=== PATIENT | female | born 1950 | race Caucasian/White ===

== ENCOUNTER → 2016-02-26 | Outpatient (CLI) | payer MEDICARE, BC ==
--- NOTE | 2016-02-28 09:52 | MM ---
Reason for exam: screening (asymptomatic). Last mammogram was performed 1 year ago. History: Patient is postmenopausal, has history of other cancer at age 62, has history of colon cancer at age 55, and is nulliparous. Benign excisional biopsy of the right breast, 1992. Took hormonal contraceptives for 7 years. Physical Findings: A clinical breast exam by your physician is recommended on an annual basis and results should be correlated with mammographic findings. MG 3D Screening Mammo W/Cad Bilateral CC and MLO view(s) were taken. Prior study comparison: February 24, 2015, bilateral MG 3d screening mammo w/cad. February 07, 2014, bilateral MG screening mammo w CAD. The breast tissue is heterogeneously dense. This may lower the sensitivity of mammography. There is no discrete abnormality. No significant changes when compared with prior studies. ASSESSMENT: Negative, BI-RAD 1 RECOMMENDATION: Routine screening mammogram of both breasts in 1 year.
== END | disposition home or self-care (01) ==
LOC: RADMAMWWP 13:53
PROVIDERS: ATTEND Obstetrics & Gynecology
DX: Z12.31 Encounter for screening mammogram for malignant neoplasm of breast (principal)
CPT/HCPCS: 77063; G0202

== ENCOUNTER → 2016-10-24 | Outpatient (CLI) | payer MEDICARE, BC ==
--- NOTE | 2016-10-25 09:16 | US ---
EXAMINATION TYPE: US thyroid st tissue head/neck DATE OF EXAM: 10/24/2016 COMPARISON: NONE CLINICAL HISTORY: E04.2 Multinodule Nodule. Follow up thyroid nodules GLAND SIZE: Right Lobe: 5.6 x 2.1 x 2.4 cm Overall Parenchyma: heterogenous Left Lobe: 5.4 x 1.1 x 1.6cm cm Overall Parenchyma: heterogeneous Isthmus Thickness: 0.3 cm NODULES RIGHT: # of nodules measured on right: 3 1. 1.9 X 0.8 x 1.7 cm mixed nodule at the upper pole with well-defined margins; . This nodule is w ider than tall and shows intranodular vascularity. Prior size: no prior exam here 2. 0.8 X 0.6 x 0.8 cm cystic nodule at the mid pole with well-defined margins; . This nodule is wid er than tall and shows no intranodular vascularity. Prior size: no prior exam here 3. 1.0 X 0.7 x 0.9 cm isoechoic solid nodule at the lower pole with poorly defined margins; . This nodule is wider than tall and shows intranodular vascularity. Prior size: no prior exam here LEFT: # of nodules measured on left: 1 1. 0.7 X 0.5 x 0.6 cm mixed nodule at the lower pole with well-defined margins; . This nodule is w ider than tall and shows no intranodular vascularity. Prior size: no prior exam here ISTHMUS: # of nodules measured in the isthmus: 0 Bilateral neck scanned, lymph node left neck = 0.6cm Multiple mixed nodules noted bilaterally, only largest measured on the left and largest 3 measured on the right. Hypoechoic area inferior (adjacent to lower pole) right lobe of thyroid = 2.0 x 1.0 x 1. 5cm IMPRESSION: 1. Multinodular goiter. 2 nodules measuring greater than 1 cm on the left lobe thyroid. 2. Hypoechoic area inferior to the right lobe thyroid. 3. Monitoring ultrasound is recommended
== END | disposition home or self-care (01) ==
LOC: RADUSWWP 15:24
PROVIDERS: ATTEND Family Medicine
DX: E04.2 Nontoxic multinodular goiter (principal); R93.8 Abnormal findings on diagnostic imaging of other specified body structures
CPT/HCPCS: 76536

== ENCOUNTER 2016-11-18 11:59 | Day surgery (SDC) | payer MEDICARE, BC ==
--- NOTE | 2016-11-18 14:01 | US ---
ULTRASOUND GUIDED FNA THYROID BIOPSY: CLINICAL HISTORY: 1.9 cm and 1 cm right thyroid nodule FINDINGS: The procedure was explained to the patient. The risks, complications, benefits and alternatives were discussed and any questions were answered. Informed consent was obtained. Patient was placed supin e on the ultrasound table and prepped and draped in the usual sterile fashion. Utilizing a 25 gauge needle, five passes were made into the 1.9 cm and 1 cm right thyroid nodule. Patient was stable throughout the procedure. Pathology is pending. All elements of maximal barrier technique were utilized. IMPRESSION: 1. Successful ultrasound guided FNA thyroid biopsy.
[2016-11-18 15:26] VITALS: BP 119/59; PULSE 82; RESP 20; TEMP 97.9
== END 2016-11-18 13:55 | disposition home or self-care (01) ==
LOC: RADUSMAIN 11:59 → EDSTATUS 14:21
PROVIDERS: ATTEND Family Medicine
DX: E04.2 Nontoxic multinodular goiter (principal)
CPT/HCPCS: 10022; 76942; 88173; 88305

== ENCOUNTER → 2017-02-27 | Outpatient (CLI) | payer MEDICARE, BC ==
--- NOTE | 2017-02-28 11:04 | MM ---
Reason for exam: screening (asymptomatic). Last mammogram was performed 1 year ago. History: Patient is postmenopausal, has history of other cancer at age 62, has history of colon cancer at age 55, and is nulliparous. Benign excisional biopsy of the right breast, 1992. Took hormonal contraceptives for 7 years. Physical Findings: A clinical breast exam by your physician is recommended on an annual basis and results should be correlated with mammographic findings. MG 3D Screening Mammo W/Cad Bilateral CC and MLO view(s) were taken. Prior study comparison: February 26, 2016, bilateral MG 3d screening mammo w/cad. February 24, 2015, bilateral MG 3d screening mammo w/cad. February 07, 2014, bilateral MG screening mammo w CAD. The breast tissue is heterogeneously dense. This may lower the sensitivity of mammography. No significant changes when compared with prior studies. ASSESSMENT: Benign, BI-RAD 2 RECOMMENDATION: Routine screening mammogram of both breasts in 1 year.
== END | disposition home or self-care (01) ==
LOC: RADMAMWWP 13:02
PROVIDERS: ATTEND Obstetrics & Gynecology
DX: Z12.31 Encounter for screening mammogram for malignant neoplasm of breast (principal)
CPT/HCPCS: 77063; 77067

== ENCOUNTER → 2017-04-03 | Outpatient (CLI) | payer MEDICARE, BC ==
--- NOTE | 2017-04-04 07:17 | US ---
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 Follow up nodules. Hx of bx= normal. No thyroid medication . GLAND SIZE: Right Lobe: 4.1 x 1.7 x 1.1 cm Overall Parenchyma: heterogenous Left Lobe: 4.5 x 1.6 x 1.0 cm Overall Parenchyma: heterogeneous Isthmus Thickness: 0.2 cm NODULES RIGHT: # of nodules measured on right: 3 1. 1.6 X 1.0 x 1.0 cm hypoechoic mixed nodule at the upper pole with well-defined margins. This no dule is taller than wide and shows intranodular vascularity. Prior size: 1.9 x 0.8 x 1.7 cm 2. 0.9 X 0.9 x 0.6 cm cystic nodule at the mid pole with well-defined margins. This nodule is wider than tall and shows no intranodular vascularity. Prior size: 0.8 x 0.6 x 0.8 cm 3. 0.8 X 0.9 x 0.6 cm isoechoic solid nodule at the lower pole with poorly defined margins. This no dule is wider than tall and shows intranodular vascularity. Prior size: 1.0 x 0.7 x 0.9 cm LEFT: # of nodules measured on left: 1 Largest nodule measured. 1. 0.7 X 0.5 x 0.4 cm hypoechoic solid nodule at the lower pole with well-defined margins. This no dule is taller than wide and shows no intranodular vascularity. Prior size: 0.7 x 0.5 x 0.6 cm ISTHMUS: # of nodules measured in the isthmus: 0 Bilateral neck scanned, no evidence of lymphadenopathy. Lesion seen inferior to right lobe, appears isoechoic to thyroid gland = 2.1 x 1.4 x 1.4 cm. Prior m easurement = 2.0 x 1.0 x 1.5 cm IMPRESSION: 1. Similar size of multiple prior bilateral nodules in the setting of the multinodular thyroid goiter with 2 prior fine-needle aspirations on 11/18/2016. 2. Minimal increased growth of the isoechoic lesion inferior to the right thyroid lobe. This could re present a mildly enlarged lymph node or exophytic nodule. Continued surveillance is recommended.
== END | disposition home or self-care (01) ==
LOC: RADUSWWP 15:44
PROVIDERS: ATTEND Family Medicine
DX: E04.2 Nontoxic multinodular goiter (principal); E07.89 Other specified disorders of thyroid
CPT/HCPCS: 76536

== ENCOUNTER → 2017-11-10 | Outpatient (CLI) | payer MEDICARE, BC ==
--- NOTE | 2017-11-11 07:47 | USB ---
Reason for exam: clinical finding. History: Patient is postmenopausal, has history of other cancer at age 62, has history of colon cancer at age 55, and is nulliparous. Benign excisional biopsy of the right breast, 1992. Took hormonal contraceptives for 7 years. Indicated problem(s): pain in the left breast. Physical Findings: Nurse Summary: bilateral breast tenderness on exam, more prominent tissue left upper quadrant, all soft, movable (nurse ts). US Breast LT Left complete breast ultrasound includes all four quadrants, the retroareolar region and axilla. Finding demonstrates a 4 x 3 x 4mm oval, cystic lesion at 1 o'clock and lymph nodes at axilla tail. These results were verbally communicated with the patient and result sheet given to the patient on 11/10/17. ASSESSMENT: Benign, BI-RAD 2 RECOMMENDATION: Return to routine screening mammogram schedule for both breasts. Back on schedule for February 2018. Manage patient on a clinical basis.
== END | disposition home or self-care (01) ==
LOC: RADUSWWP 14:21
PROVIDERS: ATTEND Family Medicine
DX: N64.4 Mastodynia (principal)

== ENCOUNTER → 2017-12-09 | Outpatient (CLI) | payer MEDICARE, BC ==
--- NOTE | 2017-12-09 16:02 | XR ---
EXAMINATION TYPE: XR knee complete RT DATE OF EXAM: 12/09/2017 CLINICAL HISTORY: Knee pain and swelling for 2 weeks after strain injury. TECHNIQUE: Three views of the right knee are obtained. COMPARISON: None. FINDINGS: There is no acute fracture/dislocation evident in right knee. There is early phase osseous demineralization. There is small patellofemoral osteophytes are seen as well as minimal medial comp artment joint space narrowing. The tri-compartment joint spaces appear within normal limits. Fabella is incidentally noted. The overlying soft tissue appears unremarkable. IMPRESSION: There is no acute fracture or dislocation in the right knee. Very mild bicompartmental a rthropathy.
== END ==
LOC: RADXRYALE 14:59
PROVIDERS: ATTEND Family Medicine
DX: M17.11 Unilateral primary osteoarthritis, right knee (principal)

== ENCOUNTER → 2018-03-16 | Outpatient (CLI) | payer MEDICARE, BC ==
--- NOTE | 2018-03-16 13:05 | BD ---
EXAMINATION TYPE: Axial Bone Density DATE OF EXAM: 03/16/2018 Comparison: Prior DEXA report 2007. CLINICAL HISTORY: Postmenopausal female Height: 63.5 Weight: 130 FRAX RISK QUESTIONS: Alcohol (3 or more units per day): no Family History (Parent hip fracture): does not know Glucocorticoids (More than 3mos): no (Ex: prednisone, prednisolone, methylprednisolone, dexamethasone, and hydrocortisone). History of Fracture in Adulthood: no Secondary Osteoporosis: 1. Type 1 Diabetes: no 2. Hyperthyroidism: no 3. Menopause before 45: no 4. Malnutrition: no 5. Chronic liver disease: no Rheumatoid Arthritis: no Current Tobacco Use: no RISK FACTORS HISTORY OF: Family History of Osteoporosis: does not know Active: yes Diet low in dairy products/other sources of calcium: no Postmenopausal woman: yes Take estrogen and/or progesterone medications: not now How long: hormonal contraceptives about 7 years Lost more than 2 inches in height since high school: no Frequent falls: no Poor Health: no Hyperparathyroidism: no Adrenal Insufficiency: no MEDICATIONS: Thyroid Medications: no Osteoporosis Medications: not now Which medication: Fosamax How Long: about 7 months Additional Medications: med for migraines Additional History: recent biopsy of thyroid nodule EXAM MEASUREMENTS: Bone mineral densitometry was performed using the [employer] System. Bone mineral density as measured about the Lumbar spine is: ----- L1-L4(G/cm2): 0.927 T Score Values are as follows: ----- L2: -1.7 ----- L3: -2.4 ----- L4: -2.5 ----- L1-L4: -2.1 Bone mineral density has: Decreased -16.3 % since study of: 06/11/2007 Bone mineral density about the R hip (g/cm2): 0.607 Bone mineral density about the L hip (g/cm2): 0.640 T Score values are as follows: -----R Neck: -3.1 -----L Neck: -2.9 -----R Total: -3.0 -----L Total: -2.5 Bone mineral density has: Decreased -19.7% since study of: 06/11/2007 IMPRESSION: Osteoporosis (T Score less than -2.5) femoral neck level in both hips is now present. Bone density di minished from prior report. There is increased fracture risk and therapy is usually indicated based on age. Re-Screen 1-2 years. NOTE: T-SCORE=SD OF THE YOUNG ADULT MEAN.
--- NOTE | 2018-03-17 09:51 | MM ---
Reason for exam: screening (asymptomatic). Last mammogram was performed 1 year and 1 month ago. History: Patient is postmenopausal, has history of other cancer at age 62, has history of colon cancer at age 55, and is nulliparous. Benign excisional biopsy of the right breast, 1992. Took hormonal contraceptives for 7 years. Physical Findings: A clinical breast exam by your physician is recommended on an annual basis and results should be correlated with mammographic findings. MG 3D Screening Mammo W/Cad Bilateral CC and MLO view(s) were taken. Prior study comparison: February 27, 2017, bilateral MG 3d screening mammo w/cad. February 26, 2016, bilateral MG 3d screening mammo w/cad. The breast tissue is heterogeneously dense. This may lower the sensitivity of mammography. There is no discrete abnormality. No significant changes when compared with prior studies. ASSESSMENT: Negative, BI-RAD 1 RECOMMENDATION: Routine screening mammogram of both breasts in 1 year.
== END | disposition home or self-care (01) ==
LOC: RADMAMWWP 09:10
PROVIDERS: ATTEND Obstetrics & Gynecology
DX: Z12.31 Encounter for screening mammogram for malignant neoplasm of breast (principal); M81.0 Age-related osteoporosis without current pathological fracture
CPT/HCPCS: 77063; 77067; 77080

== ENCOUNTER → 2019-03-18 | Outpatient (CLI) | payer MEDICARE, BC ==
--- NOTE | 2019-03-19 16:55 | MM ---
Reason for exam: screening (asymptomatic). Last mammogram was performed 1 year ago. History: Patient is postmenopausal, has history of other cancer at age 62, has history of colon cancer at age 55, and is nulliparous. Benign excisional biopsy of the right breast, 1992. Took hormonal contraceptives for 7 years. Physical Findings: A clinical breast exam by your physician is recommended on an annual basis and results should be correlated with mammographic findings. MG 3D Screening Mammo W/Cad Bilateral CC and MLO view(s) were taken. Prior study comparison: March 16, 2018, bilateral MG 3d screening mammo w/cad. February 27, 2017, bilateral MG 3d screening mammo w/cad. The breast tissue is heterogeneously dense. This may lower the sensitivity of mammography. Finding: There is a stable typically benign equal density (isodense), round mass in the 12 o'clock anterior position of the left breast. No significant changes in finding since March 16, 2018 and February 27, 2017. ASSESSMENT: Benign, BI-RAD 2 RECOMMENDATION: Routine screening mammogram of both breasts in 1 year.
== END | disposition home or self-care (01) ==
LOC: RADMAMWWP 13:10
PROVIDERS: ATTEND Obstetrics & Gynecology
DX: Z12.31 Encounter for screening mammogram for malignant neoplasm of breast (principal)
CPT/HCPCS: 77063; 77067

== ENCOUNTER → 2019-03-22 | Outpatient (CLI) | payer MEDICARE, BC ==
--- NOTE | 2019-03-23 08:31 | US ---
EXAMINATION TYPE: US pelvic complete DATE OF EXAM: 03/22/2019 COMPARISON: NONE CLINICAL HISTORY: R10.2 Pelvic Pain. Occasional pelvic pain and pain during exam by doctor. G0. LMP u nknown. TECHNIQUE: Transabdominal (TA). Transvaginal exam not to be done per order. Date of LMP: Unknown. EXAM MEASUREMENTS: Uterus: 7.0 x 4.5 x 2.5 cm Endometrial Stripe: Not clearly seen. Right Ovary: Not visualized at this time. Left Ovary: Not visualized at this time. 1. Uterus: Anteverted. Appears to be heterogeneous. Multiple hyperechoic areas seen throughout the u terus. Largest measures: 1.3 x 0.7 x 0.5 cm. 2. Endometrium: Limited visibility. 3. Bilateral Adnexa: Appear to be wnl. Bowel peristalsis is seen throughout. 4. Posterior cul-de-sac: Appears to be wnl. IMPRESSION: 1. Probable calcified leiomyomas.
== END | disposition home or self-care (01) ==
LOC: RADUSWWP 16:21
PROVIDERS: ATTEND Obstetrics & Gynecology
DX: R10.2 Pelvic and perineal pain (principal)
CPT/HCPCS: 76856

== ENCOUNTER → 2019-12-30 | Outpatient (CLI) | payer MEDICARE, BC ==
--- NOTE | 2019-12-30 09:05 | MM ---
Reason for exam: additional evaluation requested from prior study. Last mammogram was performed 9 months ago. History: Patient is postmenopausal, has history of other cancer at age 62, has history of colon cancer at age 55, and is nulliparous. Benign excisional biopsy of the right breast, 1992. Took hormonal contraceptives for 7 years. Physical Findings: Nurse did not find any significant physical abnormalities on exam. MG 3D Diag Mammo W/Cad LT CC and MLO view(s) were taken of the left breast. Prior study comparison: March 18, 2019, bilateral MG 3d screening mammo w/cad. March 16, 2018, bilateral MG 3d screening mammo w/cad. The breast tissue is heterogeneously dense. This may lower the sensitivity of mammography. No significant new findings when compared with previous films. These results were verbally communicated with the patient and result sheet given to the patient on 12/30/19. ASSESSMENT: Benign, BI-RAD 2 RECOMMENDATION: Return to routine screening mammogram schedule for both breasts.
== END | disposition home or self-care (01) ==
LOC: RADMAMWWP 07:23
PROVIDERS: ATTEND Obstetrics & Gynecology
DX: N64.4 Mastodynia (principal)
CPT/HCPCS: 77065; G0279; 77061

== ENCOUNTER → 2020-02-18 | Outpatient (CLI) | payer MEDICARE, BC ==
[2020-02-18 13:37] VITALS: BP 147/90; PULSE 84; RESP 18; TEMP 98
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
== END | disposition home or self-care (01) ==
LOC: WWCWWP 12:49
PROVIDERS: ATTEND Surgery
DX: Z53.9 Procedure and treatment not carried out, unspecified reason (principal)

== ENCOUNTER → 2020-04-27 | Outpatient (CLI) | payer MEDICARE, BC ==
--- NOTE | 2020-05-01 11:45 | MM ---
Reason for exam: screening (asymptomatic). Last mammogram was performed 4 months ago. History: Patient is postmenopausal, has history of other cancer at age 62, has history of colon cancer at age 55, and is nulliparous. Benign excisional biopsy of the right breast, 1992. Took hormonal contraceptives for 7 years. Physical Findings: A clinical breast exam by your physician is recommended on an annual basis and results should be correlated with mammographic findings. MG 3D Screening Mammo W/Cad Bilateral CC and MLO view(s) were taken. Prior study comparison: December 30, 2019, left breast MG 3d diag mammo w/cad LT. March 18, 2019, bilateral MG 3d screening mammo w/cad. The breast tissue is heterogeneously dense. This may lower the sensitivity of mammography. There is chronic nodularity in the left breast. There is no discrete abnormality. ASSESSMENT: Negative, BI-RAD 1 RECOMMENDATION: Routine screening mammogram of both breasts in 1 year.
== END | disposition home or self-care (01) ==
LOC: RADMAMWWP 14:58
PROVIDERS: ATTEND Obstetrics & Gynecology
DX: Z12.31 Encounter for screening mammogram for malignant neoplasm of breast (principal)
CPT/HCPCS: 77063; 77067

== ENCOUNTER → 2020-05-26 | Outpatient (CLI) | payer MEDICARE, BC ==
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
[2020-05-26 11:30] VITALS: BP 135/76; PULSE 81; RESP 18; TEMP 98.3
== END ==
LOC: WWCWWP 11:03
PROVIDERS: ATTEND Surgery
DX: N60.11 Diffuse cystic mastopathy of right breast (principal); N60.12 Diffuse cystic mastopathy of left breast; Z87.891 Personal history of nicotine dependence; F41.9 Anxiety disorder, unspecified

== ENCOUNTER → 2021-04-30 | Outpatient (CLI) | payer MEDICARE, BC ==
--- NOTE | 2021-05-02 09:18 | MM ---
Reason for exam: screening (asymptomatic). Last mammogram was performed 1 year ago. History: Patient is postmenopausal, has history of other cancer at age 62, has history of colon cancer at age 55, and is nulliparous. Benign excisional biopsy of the right breast, 1992. Took hormonal contraceptives for 7 years. Physical Findings: A clinical breast exam by your physician is recommended on an annual basis and results should be correlated with mammographic findings. MG 3D Screening Mammo W/Cad Bilateral CC and MLO view(s) were taken. Prior study comparison: April 27, 2020, bilateral MG 3d screening mammo w/cad. December 30, 2019, left breast MG 3d diag mammo w/cad LT. The breast tissue is heterogeneously dense. This may lower the sensitivity of mammography. No significant changes when compared with prior studies. ASSESSMENT: Benign, BI-RAD 2 RECOMMENDATION: Routine screening mammogram of both breasts in 1 year.
== END | disposition home or self-care (01) ==
LOC: RADMAMWWP 09:40
PROVIDERS: ATTEND Surgery
DX: Z12.31 Encounter for screening mammogram for malignant neoplasm of breast (principal); Z78.0 Asymptomatic menopausal state
CPT/HCPCS: 77063; 77067

== ENCOUNTER → 2021-06-21 | Outpatient (CLI) | payer MEDICARE, BC ==
[2021-06-21 09:10] VITALS: BP 154/80; PULSE 83; RESP 17; TEMP 97.9
--- NOTE | 2021-06-21 09:32 | P.PCN ---
Date of Procedure: 06/21/21 Preoperative Diagnosis: Nodularity 3 O'clock position periareolar region left breast Postoperative Diagnosis: Same Procedure(s) Performed: FNA area of concern left breast Surgeon: Ashleigh Nugent Pathology: other (FNA tissue) Condition: stable Disposition: same day Indications for Procedure: Nodularity of concern 3:00 periareolar region left breast Operative Findings: Fibrofatty breast tissue Description of Procedure: The area of concern was prepped using alcohol. A 10 mL syringe with a 22-gauge needle was passed into the area of concern. Using suction on the syringe samples were obtained. The patient tolerated procedure in stable condition. She will follow up next week for results. The specimen is sent to pathology.
== END ==
LOC: WWCWWP 08:51
PROVIDERS: ATTEND Surgery
DX: N63.25 Unspecified lump in the left breast, overlapping quadrants (principal); Z88.0 Allergy status to penicillin

== ENCOUNTER → 2021-09-17 | Outpatient (CLI) | payer MEDICARE, BC ==
--- NOTE | 2021-09-17 12:06 | US ---
EXAMINATION TYPE: US carotid duplex BILAT DATE OF EXAM: 09/17/2021 COMPARISON: NONE CLINICAL HISTORY: R42 DIZZINESS, H93.A3 PULSATILE TINNITUS. Dizziness and giddiness pulsatile tinnitu s. Prior smoker. TECHNIQUE: Carotid duplex ultrasound examination. Indirect Doppler criteria was utilized. FINDINGS: EXAM MEASUREMENTS: RIGHT: Peak Systolic Velocity (PSV) cm/sec ----- Right CCA: 120.0 ----- Right ICA: 110.2 ----- Right ECA: 46.9 ICA/CCA ratio: 0.9 RIGHT: End Diastole cm/sec ----- Right CCA: 35.7 ----- Right ICA: 34.4 ----- Right ECA: 0.0 LEFT: Peak Systolic Velocity (PSV) cm/sec ----- Left CCA: 104.0 ----- Left ICA: 96.3 ----- Left ECA: 98.5 ICA/CCA ratio: 0.9 LEFT: End Diastole cm/sec ----- Left CCA: 25.9 ----- Left ICA: 20.4 ----- Left ECA: 12.8 VERTEBRALS (direction of flow): Right Vertebral: Antegrade Left Vertebral: Antegrade Rhythm: Normal MECHANICAL SYSTEMS CONTROL ENGINEER NOTES: No elevated velocities at this time. Difficult to follow right ICA distally. IMPRESSION: Mild intimal thickening without significant flow-limiting stenosis. Criteria for Assigning % of Stenosis / Diameter reduction (Estimation based on the indirect measurements of the internal carotid artery velocities (ICA PSV). 1. Normal (no stenosis)=ICA PSV < 125 cm/s: ratio < 2.0: ICA EDV<40 cm/s. 2. Less than 50% stenosis=ICA PSV < 125 cm/s: ratio < 2.0: ICA EDV<40 cm/s. 3. 50 to 69% stenosis=ICA PSV of 125 to 230 cm/s: ration 2.0 ? 4.0: ICA EDV 40-100 cm/s. 4. Greater than 70% stenosis to near occlusion= ICA PSV > 230 cm/s: ratio > 4.0: ICA EDV > 100 cm/s. 5. Near occlusion= ICA PSV velocities may be low or undetectable: variable ratio and ICA EDV. 6. Total occlusion=unable to detect flow.
== END | disposition home or self-care (01) ==
LOC: RADUSWWP 10:50
PROVIDERS: ATTEND Family Medicine
DX: R42 Dizziness and giddiness (principal); H93.A3 Pulsatile tinnitus, bilateral
CPT/HCPCS: 93880

== ENCOUNTER → 2021-10-23 | Outpatient (CLI) | payer MEDICARE, BC ==
--- NOTE | 2021-10-23 15:12 | USB ---
Reason for Exam: Follow-up at short interval from prior study. Patient History: Menarche at age 16. Patient has no children. Postmenopausal. Colorectal cancer, age 55. Other cancer, age 62. Patient used Hormonal Contraceptives for 7 years. 1992, Benign Excisional Biopsy on the right side. Risk Values: Amena 5 year model risk: 2.1%. NCI Lifetime model risk: 5.5%. Technique: Method: Whole Breast Handheld. Prior Study Comparison: 12/30/2019 Left Diagnostic Mammogram, [facility]. 04/27/2020 Bilateral Screening Mammogram, [facility]. 04/30/2021 Bilateral Screening Mammogram, [facility]. Findings: The whole breast of the left breast, the axilla of the left breast and the retroareolar of the left breast were scanned. No solid or cystic masses are identified. Overall Assessment: Negative, BI-RAD 1 Management: Return to routine follow-up (next follow-up: 04/30/2022 for Screening Mammogram) A clinical breast exam by your physician is recommended on an annual basis and results should be correlated with mammographic findings. Electronically signed and approved by: Tj Aquino M.D. Radiologis
== END | disposition home or self-care (01) ==
LOC: RADUSWWP 13:57
PROVIDERS: ATTEND Surgery
DX: R92.8 Other abnormal and inconclusive findings on diagnostic imaging of breast (principal); Z78.0 Asymptomatic menopausal state

== ENCOUNTER → 2021-10-26 | Outpatient (CLI) | payer MEDICARE, BC ==
--- NOTE | 2021-10-26 11:57 | P.PN ---
Subjective Progress Note Date: 10/26/21 Principal diagnosis: fibrocystic breast pain nodularity of the left breast Bilateral mammogram on 04-30-21 Benign BIRAD 2. Her breast pain has improved. She only drinks decaff tea and takes [place] oil. She states it is worse after physical therapy. She does still drink coffee. The patient does feel nodularity in her left breast in the periareolar region the lateral aspect. It is tender. NO other lumps, masses, or nodules of concern in either breast. 10-26-21: left breast ultrasound on 10-23-21 BIRAD 1, no solid or cystic masses noted She is not concerned about any lumps, masses or nodules in her breast Has decreased her caffeine intake, she states recently she did have caffeinated beverages and the breast pain did increase. She has been using [place] oil as well. Breast pain has improved, she has decreased caffeinated beverages, using [place] oil, and stopped using soy products. She has noticed that with exercise she developed shoulder pain and discomfort in her breast as well. Caffeine: 3-5 cups per day of coffee and/or Tea/ (has stopped these about 3 months ago) in the past; she only drinks 2 cups of coffee/day; tea decaff Nicotine: Negative chocolate: occasional hormones: none, soy stopped using soy Family History: adopted unknown Hormonal History: menarche: 16 , no live menopause: ? 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 D&C Medical History: migraine headaches bilateral cataracts Social History: smoke: stopped 15 years ago alcohol: none drugs: none - Constitutional Constitutional: Denies chills, Denies fever - EENT Comment: cataracts bilateral Ears: deny: decreased hearing, tinnitus Ears, nose, mouth and throat: Reports headache, Denies sore throat - Breasts Breasts: bilateral: as per HPI - Cardiovascular Cardiovascular: Denies chest pain, Denies shortness of breath - Respiratory Respiratory: Denies cough - Gastrointestinal Gastrointestinal: Denies abdominal pain, Denies diarrhea, Denies nausea, Denies vomiting - Genitourinary (Female) Genitourinary: Denies dysuria, Denies hematuria - Menstruation Menstruation: Reports postmenopausal - Musculoskeletal Comment: arthritis - Integumentary Comment: eczema - Neurological Neurological: Denies numbness, Denies weakness - Psychiatric Psychiatric: Reports anxiety, Denies depression - Endocrine Endocrine: Denies fatigue, Denies weight change - Hematologic/Lymphatic Comment: Objective - Constitutional General appearance: Present: cooperative - EENT Eyes: Present: EOMI ENT: Present: hearing grossly normal - Neck Neck: Present: normal ROM - Respiratory Respiratory: bilateral: CTA - Cardiovascular Rhythm: regular Heart sounds: normal: S1, S2 - Integumentary Integumentary: Present: normal turgor - Musculoskeletal Musculoskeletal: Present: gait normal - Psychiatric Psychiatric: Present: A&O x's 3, appropriate affect, intact judgment & insight - Additional findings Additional findings: Breast Exam: BRA: 32B inspection: Bilateral grade 2 ptosis Palpation: Right breast: Well-healed scar from prior surgery, no dominant masses or nodules of concern on multiposition all exam Right axilla: No adenopathy of concern Left breast: Multi-positional exam no dominant masses or nodules of concern, fibrocystic changes Left axilla: No adenopathy of concern Assessment and Plan Assessment: Impression/plan: Fibrocystic breast changes Recent left breast ultrasound [id number] benign BIRADS 1 Bilateral mammogram 04-30-21 benign BIRADS 2, recommend repeat bilateral mammogram in April 2022 with physician exam at that time continue [place] oil Continue lifestyle modification with decreased caffeine intake Patient to call sooner any questions or concerns Patient has had a history of melanoma in the past and is following with dermatology in relationship to this CC: Dr. Dietz
[2021-10-26 13:37] VITALS: BP 132/79; PULSE 77; RESP 16; TEMP 98.3
== END ==
LOC: WWCWWP 11:08
PROVIDERS: ATTEND Surgery
DX: N60.12 Diffuse cystic mastopathy of left breast (principal); G43.909 Migraine, unspecified, not intractable, without status migrainosus; Z87.891 Personal history of nicotine dependence; Z88.0 Allergy status to penicillin

== ENCOUNTER → 2022-05-06 | Outpatient (CLI) | payer MEDICARE, BC ==
--- NOTE | 2022-05-10 08:08 | MM ---
Reason for Exam: Additional evaluation requested from prior study. Last screening mammogram was performed 12 month(s) ago. Patient History: Menarche at age 16. Patient has no children. Postmenopausal. Colorectal cancer, age 55. Other cancer, age 62. Patient used Hormonal Contraceptives for 7 years. 1992, Benign Excisional Biopsy on the right side. Risk Values: Amena 5 year model risk: 2.1%. NCI Lifetime model risk: 5.2%. Prior Study Comparison: 02/24/2015 Bilateral Screening Mammogram, [facility]. 02/26/2016 Bilateral Screening Mammogram, [facility]. 02/27/2017 Bilateral Screening Mammogram, [facility]. 03/16/2018 Bilateral Screening Mammogram, [facility]. 03/18/2019 Bilateral Screening Mammogram, [facility]. 12/30/2019 Left Diagnostic Mammogram, [facility]. 04/27/2020 Bilateral Screening Mammogram, [facility]. 04/30/2021 Bilateral Screening Mammogram, [facility]. Tissue Density: The breast tissue is heterogeneously dense. This may lower the sensitivity of mammography. Findings: Analyzed By CAD. No mass or distortion seen. No suspicious appearing microcalcifications. Overall Assessment: Negative, BI-RAD 1 Management: Screening Mammogram of both breasts in 1 year. A clinical breast exam by your physician is recommended on an annual basis and results should be correlated with mammographic findings. This exam should not preclude additional follow-up of suspicious palpable abnormalities. Results were given to the patient verbally at the time of exam. Electronically signed and approved by: Tj Aquino M.D. Radiologis
== END | disposition home or self-care (01) ==
LOC: RADMAMWWP 08:40
PROVIDERS: ATTEND Surgery
DX: R92.8 Other abnormal and inconclusive findings on diagnostic imaging of breast (principal); Z78.0 Asymptomatic menopausal state; Z98.890 Other specified postprocedural states
CPT/HCPCS: 77066; G0279; 77062

== ENCOUNTER → 2022-05-10 | Outpatient (CLI) | payer MEDICARE, BC | LOC: WWCWWP 11:23 | PROVIDERS: ATTEND Surgery | DX: Z53.9 Procedure and treatment not carried out, unspecified reason (principal) ==

== ENCOUNTER → 2022-05-30 | Outpatient (CLI) | payer MEDICARE, BC ==
[2022-05-30 10:05] VITALS: BP 139/75; PULSE 85; RESP 17; TEMP 97.8
--- NOTE | 2022-05-30 10:14 | P.PN ---
Subjective Progress Note Date: 05/30/22 Principal diagnosis: Fibrocystic breast pain fibrocystic breast pain nodularity of the left breast Bilateral mammogram on 04-30-21 Benign BIRAD 2. Her breast pain has improved. She only drinks decaff tea and takes [place] oil. She states it is worse after physical therapy. She does still drink coffee. The patient does feel nodularity in her left breast in the periareolar region the lateral aspect. It is tender. NO other lumps, masses, or nodules of concern in either breast. 10-26-21: left breast ultrasound on 10-23-21 BIRAD 1, no solid or cystic masses noted She is not concerned about any lumps, masses or nodules in her breast Has decreased her caffeine intake, she states recently she did have caffeinated beverages and the breast pain did increase. She has been using [place] oil as well. Breast pain has improved, she has decreased caffeine beverages, using [place] oil, and stopped using soy products. She has noticed that with exercise she developed shoulder pain and discomfort in her breast as well. 05-30-22 The patient has continued to drink decaff, but still has some persistent breast pain. She was seen by orthopedics and told cervical disc disease She states that exercise causes pain in her neck and seems to radiate to the breast. She is not complaining of any new lumps masses or nodules in her breast. She had a bilateral mammogram on [id number] which was benign BIRADS 1. Caffeine: 3-5 cups per day of coffee and/or Tea/ (has stopped these about 3 months ago) in the past; she only drinks 2 cups of coffee/day; tea decaff Nicotine: Negative chocolate: occasional hormones: none, soy stopped using soy Family History: adopted unknown Hormonal History: menarche: 16 , no live menopause: ? 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 D&C Medical History: migraine headaches bilateral cataracts cervical disc disease Social History: smoke: stopped 15 years ago alcohol: none drugs: none - Constitutional Constitutional: Denies chills, Denies fever - EENT Comment: cataracts bilateral Ears: deny: decreased hearing, tinnitus Ears, nose, mouth and throat: Reports headache, Denies sore throat - Breasts Breasts: bilateral: as per HPI - Cardiovascular Cardiovascular: Denies chest pain, Denies shortness of breath - Respiratory Respiratory: Denies cough - Gastrointestinal Gastrointestinal: Denies abdominal pain, Denies diarrhea, Denies nausea, Denies vomiting - Genitourinary (Female) Genitourinary: Denies dysuria, Denies hematuria - Menstruation Menstruation: Reports postmenopausal - Musculoskeletal Comment: arthritis - Integumentary Comment: eczema - Neurological Neurological: Denies numbness, Denies weakness - Psychiatric Psychiatric: Reports anxiety, Denies depression - Endocrine Endocrine: Denies fatigue, Denies weight change - Hematologic/Lymphatic Comment: Objective - Vital Signs Vital signs: Intake & Output 05/29/22 05/30/22 05/30/22 18:59 06:59 18:59 Weight 63.503 kg - Constitutional General appearance: Present: cooperative - EENT Eyes: Present: EOMI ENT: Present: hearing grossly normal - Neck Neck: Present: normal ROM - Respiratory Respiratory: bilateral: CTA - Cardiovascular Rhythm: regular Heart sounds: normal: S1, S2 - Gastrointestinal General gastrointestinal: Present: soft - Integumentary Integumentary: Present: normal turgor - Musculoskeletal Musculoskeletal: Present: gait normal - Psychiatric Psychiatric: Present: A&O x's 3, appropriate affect, intact judgment & insight - Additional findings Additional findings: Breast Exam: BRA: 32B inspection: Bilateral grade 2 ptosis Palpation: Right breast: Well-healed scar from prior surgery, no dominant masses or nodules of concern on multiposition all exam Right axilla: No adenopathy of concern Left breast: Multi-positional exam no dominant masses or nodules of concern, fibrocystic changes Left axilla: No adenopathy of concern Assessment and Plan Assessment: Impression/plan: Fibrocystic breast changes Recent left breast ultrasound [id number] benign BIRADS 1 Bilateral mammogram 05-06-22 BIRADS 1 Continue lifestyle modification with decreased caffeine intake Bilateral mammogram in 1 year with exam Patient to call sooner any questions or concerns Patient has had a history of melanoma in the past and is following with dermatology in relationship to this CC: Dr. Dietz
== END ==
LOC: WWCWWP 09:51
PROVIDERS: ATTEND Surgery
DX: N60.12 Diffuse cystic mastopathy of left breast (principal); N64.4 Mastodynia; G43.909 Migraine, unspecified, not intractable, without status migrainosus; Z87.891 Personal history of nicotine dependence; Z88.0 Allergy status to penicillin

== ENCOUNTER → 2023-05-06 | Outpatient (CLI) | payer MEDICARE, BC ==
--- NOTE | 2023-05-06 16:15 | US ---
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 1.6 X 0.8 x 1.2 cm, upper medial, solid or almost completely solid, isoechoic nodule, which is w ider than tall, with ill-defined margins, without echogenic foci. TR 3 Prior size: 1.0 x 0.7 x 0.9 cm LEFT: # of nodules measured on left: 1; Multiple noted, largest measured 1. 0.9 X 0.5 x 0.8 cm, upper medial, solid or almost completely solid, hypoechoic nodule, which is wider than tall, with smooth margins, without echogenic foci. Prior size: ? Not seen on prior ISTHMUS: # of nodules measured in the isthmus: 1 1. 0.7 X 0.4 x 0.7 cm solid or almost completely solid, very hypoechoic nodule, which is wider than tall, with smooth margins, without echogenic foci. Prior size: ? not seen on prior Bilateral neck scanned, no evidence of lymphadenopathy. IMPRESSION: Mildly suspicious nodule right lobe thyroid. Follow-up in one year is recommended. 2017 ACR TI-RADS LEVEL: TR-RADS 3 - Mildly Suspicious: Follow if > 1.5 cm, FNA if > 2.5 cm *Highest TI-RADS level nodule reported
== END | disposition home or self-care (01) ==
LOC: RADUSWWP 14:39
PROVIDERS: ATTEND Family Medicine
DX: E04.2 Nontoxic multinodular goiter (principal); Z85.820 Personal history of malignant melanoma of skin
CPT/HCPCS: 76536

== ENCOUNTER → 2023-05-08 | Outpatient (CLI) | payer MEDICARE, BC ==
--- NOTE | 2023-05-08 12:33 | MM ---
Reason for Exam: Screening (asymptomatic). Last screening mammogram was performed 12 month(s) ago. Patient History: Menarche at age 16. Patient has no children. Postmenopausal. Patient used Hormonal Contraceptives for 7 years. 1992, Benign Excisional Biopsy on the right side. Risk Values: Amena 5 year model risk: 2.1%. NCI Lifetime model risk: 4.9%. Prior Study Comparison: 04/27/2020 Bilateral Screening Mammogram, [facility]. 04/30/2021 Bilateral Screening Mammogram, [facility]. 05/06/2022 Bilateral MG 3D diag mammo w/cad [facility], [facility]. Tissue Density: There are scattered areas of fibroglandular density. Findings: Analyzed By CAD. The pattern is symmetrical. Pattern appears stable. Benign calcifications within the left breast. No significant interval changes are evident. No suspicious groups of microcalcifications, spiculated or lobular masses, architectural distortion or other secondary signs of malignancy are mammographically apparent. Overall Assessment: Benign, BI-RAD 2 Management: Screening Mammogram of both breasts in 1 year. A negative mammogram report should not preclude additional follow up of suspicious palpable abnormalities. Patient should continue monthly self breast exam. A clinical breast exam by your physician is recommended on an annual basis and results should be correlated with mammographic findings. Electronically signed and approved by: Parish Santiago D.O. Radiologis
== END | disposition home or self-care (01) ==
LOC: RADMAMWWP 09:02
PROVIDERS: ATTEND Surgery
DX: Z12.31 Encounter for screening mammogram for malignant neoplasm of breast (principal); Z78.0 Asymptomatic menopausal state
CPT/HCPCS: 77063; 77067

== ENCOUNTER → 2023-05-15 | Outpatient (CLI) | payer MEDICARE, BC ==
--- NOTE | 2023-05-15 14:34 | USB ---
Reason for Exam: Clinical finding. Patient History: Menarche at age 16. Patient has no children. Postmenopausal. Patient used Hormonal Contraceptives for 7 years. 1992, Benign Excisional Biopsy on the right side. Risk Values: Amena 5 year model risk: 2.1%. NCI Lifetime model risk: 4.9%. Technique: Method: Targeted. Prior Study Comparison: 04/30/2021 Bilateral Screening Mammogram, [facility]. 05/06/2022 Bilateral MG 3D diag mammo w/cad [facility], [facility]. 05/08/2023 Bilateral MG 3D screening mammo w/cad, [facility]. Findings: The lower inner quadrant of the left breast, the axilla of the left breast and the retroareolar of the left breast were scanned. No solid or cystic masses are identified. Managed clinically. Overall Assessment: Negative, BI-RAD 1 Management: Screening Mammogram of both breasts in 1 year. A clinical breast exam by your physician is recommended on an annual basis and results should be correlated with mammographic findings. This exam should not preclude additional follow-up of suspicious palpable abnormalities. Results were given to the patient verbally at the time of exam. Electronically signed and approved by: Tj Aquino M.D. Radiologis
== END | disposition home or self-care (01) ==
LOC: RADUSWWP 14:02
PROVIDERS: ATTEND Surgery
DX: N63.24 Unspecified lump in the left breast, lower inner quadrant (principal); Z78.0 Asymptomatic menopausal state

== ENCOUNTER → 2023-05-15 | Outpatient (CLI) | payer MEDICARE, BC ==
[2023-05-15 13:41] VITALS: BP 160/84; PULSE 73; RESP 15; TEMP 98.1
--- NOTE | 2023-05-15 13:59 | P.PN ---
Subjective Progress Note Date: 05/15/23 Principal diagnosis: fibrocystic breast disease 05/30/22 Principal diagnosis: Fibrocystic breast pain fibrocystic breast pain nodularity of the left breast Bilateral mammogram on 04-30-21 Benign BIRAD 2. Her breast pain has improved. She only drinks decaff tea and takes [place] oil. She states it is worse after physical therapy. She does still drink coffee. The patient does feel nodularity in her left breast in the periareolar region the lateral aspect. It is tender. NO other lumps, masses, or nodules of concern in either breast. 10-26-21: left breast ultrasound on 10-23-21 BIRAD 1, no solid or cystic masses noted She is not concerned about any lumps, masses or nodules in her breast Has decreased her caffeine intake, she states recently she did have caffeinated beverages and the breast pain did increase. She has been using [place] oil as well. Breast pain has improved, she has decreased caffeine beverages, using [place] oil, and stopped using soy products. She has noticed that with exercise she developed shoulder pain and discomfort in her breast as well. 05-30-22 The patient has continued to drink decaff, but still has some persistent breast pain. She was seen by orthopedics and told cervical disc disease She states that exercise causes pain in her neck and seems to radiate to the breast. She is not complaining of any new lumps masses or nodules in her breast. She had a bilateral mammogram on [id number] which was benign BIRADS 1. 05-15-23 Mariah Chirinos is a 73 year old female with a history of breast pain. It is very sensitive to caffeine. It is much worse if she drinks coffee. She has started drinking decaffeinated coffee and this seems to be helping. She had a bilateral mammogram on 05-08-23 which was BIRAD 2. The patient is complaining of a lump in her left breast She is uncertain as to how long it has been there. The lump is not painful. Amena Risk: 5 year risk 2.1% declined chemoprevention, patient declined Caffeine: 2 cups decaf coffee per day, used to drink up to 5 cups of caffeinated coffee per day Nicotine: Negative chocolate: occasional hormones: none, soy stopped using soy Family History: adopted unknown Hormonal History: menarche: 16 , no live menopause: ? 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 D&C Medical History: migraine headaches bilateral cataracts cervical disc disease Social History: smoke: stopped 15 years ago alcohol: none drugs: none - Constitutional Constitutional: Denies chills, Denies fever - EENT Comment: cataracts bilateral Ears: deny: decreased hearing, tinnitus Ears, nose, mouth and throat: Reports headache, Denies sore throat - Breasts Breasts: bilateral: as per HPI - Cardiovascular Cardiovascular: Denies chest pain, Denies shortness of breath - Respiratory Respiratory: Denies cough - Gastrointestinal Gastrointestinal: Denies abdominal pain, Denies diarrhea, Denies nausea, Denies vomiting - Genitourinary (Female) Genitourinary: Denies dysuria, Denies hematuria - Menstruation Menstruation: Reports postmenopausal - Musculoskeletal Comment: arthritis - Integumentary Comment: eczema - Neurological Neurological: Denies numbness, Denies weakness - Psychiatric Psychiatric: Reports anxiety, Denies depression - Endocrine Endocrine: Denies fatigue, Denies weight change - Hematologic/Lymphatic Comment: Objective - Vital Signs Vital signs: Vital Signs Temp 98.1 F 05/15/23 13:00 Pulse 73 05/15/23 13:00 Resp 15 05/15/23 13:00 BP 160/84 05/15/23 13:00 Pulse Ox 95 05/15/23 13:00 FiO2 Intake & Output 05/14/23 05/15/23 05/15/23 18:59 06:59 18:59 Weight 63.503 kg - Constitutional General appearance: Present: cooperative - EENT Eyes: Present: EOMI ENT: Present: hearing grossly normal - Neck Neck: Present: normal ROM - Respiratory Respiratory: bilateral: CTA - Cardiovascular Heart sounds: normal: S1, S2 - Integumentary Integumentary: Present: normal turgor - Musculoskeletal Musculoskeletal: Present: gait normal - Psychiatric Psychiatric: Present: A&O x's 3, appropriate affect, intact judgment & insight - Additional findings Additional findings: Breast Exam: BRA: 32B inspection: Bilateral grade 2 ptosis Palpation: Right breast: Well-healed scar from prior surgery, no dominant masses or nodules of concern on multipositional exam Right axilla: No adenopathy of concern Left breast: Multi-positional exam 30 at the 7:00 area periareolar which is tender to palpation, and fullness of the inferior medial inframammary ridge Left axilla: No adenopathy of concern Assessment and Plan Assessment: Impression/plan: Fibrocystic breast changes Bilateral mammogram 05-08-23 BIRAD 2 Continue lifestyle modification with decreased caffeine intake Area of nodularity in the left breast with done ultrasound to be done with attention also to the inframammary ridge region in the lower inner aspect Patient to follow-up as soon as this is done if the ultrasound does not show any lesions of concern the patient will follow- up in 3 months for repeat breast examination Bilateral mammogram in 1 year with exam Patient to call sooner any questions or concerns Patient has had a history of melanoma in the past and is following with dermatology in relationship to this CC: Dr. Dietz
== END ==
LOC: WWCWWP 11:30
PROVIDERS: ATTEND Surgery
DX: R92.8 Other abnormal and inconclusive findings on diagnostic imaging of breast (principal); N60.19 Diffuse cystic mastopathy of unspecified breast; N64.4 Mastodynia; N63.24 Unspecified lump in the left breast, lower inner quadrant; Z85.820 Personal history of malignant melanoma of skin; Z88.0 Allergy status to penicillin; Z87.891 Personal history of nicotine dependence

== ENCOUNTER → 2023-08-06 | Outpatient (CLI) | payer MEDICARE, BC ==
--- NOTE | 2023-08-06 16:15 | US ---
EXAMINATION TYPE: US carotid duplex BILAT DATE OF EXAM: 08/06/2023 COMPARISON: Ultrasound carotid 09/17/21 CLINICAL INDICATION: Female, 73 years old with history of R42 DIZZINESS GIDDINESS G43.009 MIGRAINE H 53.30; vertigo TECHNIQUE: Carotid duplex ultrasound examination. Indirect Doppler criteria was utilized. FINDINGS: EXAM MEASUREMENTS: RIGHT: Peak Systolic Velocity (PSV) cm/sec ----- Right CCA: 104.8 ----- Right ICA: 82.7 ----- Right ECA: 58.1 ICA/CCA ratio: 0.8 RIGHT: End Diastole cm/sec ----- Right CCA: 27.3 ----- Right ICA: 29.6 ----- Right ECA: 6.3 LEFT: Peak Systolic Velocity (PSV) cm/sec ----- Left CCA: 82.6 ----- Left ICA: 82.3 ----- Left ECA: 73.6 ICA/CCA ratio: 1.0 LEFT: End Diastole cm/sec ----- Left CCA: 21.5 ----- Left ICA: 21.5 ----- Left ECA: 8.9 VERTEBRALS (direction of flow): Right Vertebral: Antegrade Left Vertebral: Antegrade Rhythm: Normal VISUAL MANAGER NOTES: No significant velocity elevations IMPRESSION: No ultrasound evidence for hemodynamically significant stenosis of the bilateral visualized carotid a rterial systems. Criteria for Assigning % of Stenosis / Diameter reduction (Estimation based on the indirect measurements of the internal carotid artery velocities (ICA PSV). 1. Normal (no stenosis)=ICA PSV < 125 cm/s: ratio < 2.0: ICA EDV<40 cm/s. 2. Less than 50% stenosis=ICA PSV < 125 cm/s: ratio < 2.0: ICA EDV<40 cm/s. 3. 50 to 69% stenosis=ICA PSV of 125 to 230 cm/s: ration 2.0 ? 4.0: ICA EDV 40-100 cm/s. 4. Greater than 70% stenosis to near occlusion= ICA PSV > 230 cm/s: ratio > 4.0: ICA EDV > 100 cm/s. 5. Near occlusion= ICA PSV velocities may be low or undetectable: variable ratio and ICA EDV. 6. Total occlusion=unable to detect flow.
--- NOTE | 2023-08-07 12:53 | MR ---
EXAMINATION TYPE: MR brain wo con DATE OF EXAM: 08/06/2023 3:16 PM CLINICAL INDICATION:Female, 73 years old with history of R42 DIZZINESS GIDDINESS G43.009 MIGRAINE H5 3.30; PHH, Migraines, vertigo with falling, swooshing in ears, off balance, weakness right side, Hx c ancer colon 2007 and melanoma 2013 COMPARISON: 10/19/2014 TECHNIQUE: Multi planar, multi sequence imaging was performed through the brain including: T1, T2, In version recovery, Diffusion weighted imaging, and gradient echo imaging. No gadolinium was given. FINDINGS: The gates-white junctions, ventricular system, basal cisterns appear unremarkable. Scattered foci of high T2 signal intensity are seen within the periventricular white matter. Midline structures show n o abnormality. Diffusion-weighted imaging shows no evidence of restricted diffusion. The susceptibili ty weighted images demonstrated Cymro to affect focus within the right frontal lobe compatible wit h microhemorrhage and/or small vascular malformation such as cavernoma. The bone marrow signal is wit hin normal limits. Paranasal sinuses and mastoid air cells: No significant paranasal sinus disease. Visualized orbits: Orbital contents are intact. IMPRESSION: 1. No evidence of intracranial mass or acute/subacute infarct. 2. Nonspecific white matter changes, likely secondary to small vessel ischemic disease.
== END | disposition home or self-care (01) ==
LOC: RADMRIMAIN 14:05
PROVIDERS: ATTEND Family Medicine
DX: G43.909 Migraine, unspecified, not intractable, without status migrainosus (principal); R42 Dizziness and giddiness; H53.30 Unspecified disorder of binocular vision; Z85.038 Personal history of other malignant neoplasm of large intestine; Z85.820 Personal history of malignant melanoma of skin; Z87.59 Personal history of other complications of pregnancy, childbirth and the puerperium
CPT/HCPCS: 70551; 93880

== ENCOUNTER → 2023-08-21 | Outpatient (CLI) | payer MEDICARE, BC ==
--- NOTE | 2023-08-21 12:59 | P.PN ---
Subjective Progress Note Date: 08/21/23 Principal diagnosis: fibrocystic breast changes fibrocystic breast disease 05/30/22 Principal diagnosis: Fibrocystic breast pain fibrocystic breast pain nodularity of the left breast Bilateral mammogram on 04-30-21 Benign BIRAD 2. Her breast pain has improved. She only drinks decaff tea and takes [place] oil. She states it is worse after physical therapy. She does still drink coffee. The patient does feel nodularity in her left breast in the periareolar region the lateral aspect. It is tender. NO other lumps, masses, or nodules of concern in either breast. 10-26-21: left breast ultrasound on 10-23-21 BIRAD 1, no solid or cystic masses noted She is not concerned about any lumps, masses or nodules in her breast Has decreased her caffeine intake, she states recently she did have caffeinated beverages and the breast pain did increase. She has been using [place] oil as well. Breast pain has improved, she has decreased caffeine beverages, using [place] oil, and stopped using soy products. She has noticed that with exercise she de veloped shoulder pain and discomfort in her breast as well. 05-30-22 The patient has continued to drink decaff, but still has some persistent breast pain. She was seen by orthopedics and told cervical disc disease She states that exercise causes pain in her neck and seems to radiate to the breast. She is not complaining of any new lumps masses or nodules in her breast. She had a bilateral mammogram on 320 723 which was benign BIRADS 1. 05-15-23 Mariah Chirinos is a 73 year old female with a history of breast pain. It is very sensitive to caffeine. It is much worse if she drinks coffee. She has started drinking decaffeinated coffee and this seems to be helping. She had a bilateral mammogram on 05-08-23 which was BIRAD 2. The patient is complaining of a lump in her left breast She is uncertain as to how long it has been there. The lump is not painful. Amena Risk: 5 year risk 2.1% declined chemoprevention, patient declined 08-21-23 left breast ultrasound of area of concern on 05-15-23 BIRAD 1 bilateral mammogram on 05-08-23 BIRAD 2 Her breast pain is improved, no new lumps masses or nodues; she did note some fullness in the periareolar region in the more medial aspect which she felt caused her nipple to deviate inferiorly on several occasions. She did take a picture to document this, daily there is nothing specific that she notes. She is complaining of weakness on the right side of her body with an unsteady gait, she does have an appointment with neurology in the near future Caffeine: 2 cups decaf coffee per day, used to drink up to 5 cups of caffeinated coffee per day Nicotine: Negative chocolate: occasional hormones: none, soy stopped using soy Family History: adopted unknown Hormonal History: menarche: 16 , no live menopause: ? 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 D&C Medical History: migraine headaches bilateral cataracts cervical disc disease weakness right side of the body Social History: smoke: stopped 15 years ago alcohol: none drugs: none - Constitutional Constitutional: Denies chills, Denies fever - EENT Comment: cataracts bilateral Ears: deny: decreased hearing, tinnitus Ears, nose, mouth and throat: Reports headache, Denies sore throat - Breasts Breasts: bilateral: as per HPI - Cardiovascular Cardiovascular: Denies chest pain, Denies shortness of breath - Respiratory Respiratory: Denies cough - Gastrointestinal Gastrointestinal: Denies abdominal pain, Denies diarrhea, Denies nausea, Denies vomiting - Genitourinary (Female) Genitourinary: Denies dysuria, Denies hematuria - Menstruation Menstruation: Reports postmenopausal - Musculoskeletal Comment: arthritis - Integumentary Comment: eczema - Neurological Neurological: Denies numbness, Denies weakness - Psychiatric Psychiatric: Reports anxiety, Denies depression - Endocrine Endocrine: Denies fatigue, Denies weight change - Hematologic/Lymphatic Comment: Objective - Constitutional General appearance: Present: cooperative - EENT Eyes: Present: EOMI ENT: Present: hearing grossly normal - Neck Neck: Present: normal ROM - Respiratory Respiratory: bilateral: CTA - Cardiovascular Heart sounds: normal: S1, S2 - Integumentary Integumentary: Present: normal turgor - Musculoskeletal Musculoskeletal: Present: gait normal - Psychiatric Psychiatric: Present: A&O x's 3, appropriate affect, intact judgment & insight - Additional findings Additional findings: Breast Exam: BRA: 32B inspection: Bilateral grade 2 ptosis Palpation: Right breast: Well-healed scar from prior surgery, no dominant masses or nodules of concern on multipositional exam, particular attention was paid to the periareolar region and no discrete dominant masses or nodules of concern were identified at that site, there is a well-healed scar from prior surgery Right axilla: No adenopathy of concern Left breast: Multi-positional exam no dominate masses or nodules of concern Left axilla: No adenopathy of concern Assessment and Plan Assessment: Impression/plan: Fibrocystic breast changes Bilateral mammogram 05-08-23 BIRAD 2 Continue lifestyle modification with decreased caffeine intake Area of nodularity in the left breast with done ultrasound to be done with attention also to the inframammary ridge region in the lower inner aspect Patient to follow-up as soon as this is done ultrasound of this area done on 05-15-23 BIRAD 1 Bilateral mammogram in April 2024 with exam at that time Patient to call sooner any questions or concerns Patient has had a history of melanoma in the past and is following with dermatology in relationship to this CC: Dr. Dietz
[2023-08-21 13:23] VITALS: BP 139/78; PULSE 77; RESP 16; TEMP 97.8
== END ==
LOC: WWCWWP 11:50
PROVIDERS: ATTEND Surgery
DX: R92.8 Other abnormal and inconclusive findings on diagnostic imaging of breast (principal); N60.11 Diffuse cystic mastopathy of right breast; N60.12 Diffuse cystic mastopathy of left breast; N64.4 Mastodynia; N63.24 Unspecified lump in the left breast, lower inner quadrant; M25.519 Pain in unspecified shoulder; M50.30 Other cervical disc degeneration, unspecified cervical region; Z87.891 Personal history of nicotine dependence; Z85.820 Personal history of malignant melanoma of skin; Z88.0 Allergy status to penicillin

== ENCOUNTER → 2023-09-15 | Outpatient (CLI) | payer MEDICARE, BC ==
--- NOTE | 2023-10-09 11:08 | MR ---
Patient: Mariah Lepe Marie Ordering Physician: Unknown, Unknown ID: [id number] Phone, Pager: Phone : N/A Pager: N/A : 1950 Age/Gender: 73Y, F Primary Location: N/A Procedure: MRA NECK WO/W CON Study Date: 09/15/2023 11:15:00 AM EXAMINATION TYPE: MR angio neck w con DATE OF EXAM: 09/29/2023 10:06 PM CLINICAL INDICATION: Dizziness vertigo swishing and ureters, weakness pain right side COMPARISON: 08/06/2023 TECHNIQUE: Multiplanar, multi-sequence imaging as well as eevv-wz-vuuhbs and phase contrast imaging w as performed extracranial vasculature of the neck. 2-D and 3-D ehur-ky-gheqam imaging. 3-D reformatte d images and maximum intensity projection reformatted images were submitted for evaluation. IV Contrast: 7 cc Gadavist. FINDINGS: RIGHT CAROTID SYSTEM: The common carotid artery is patent. The carotid bifurcations that she no evide nce for hemodynamically significant stenosis. The internal carotid arteries patent. LEFT CAROTID SYSTEM: The common carotid artery is patent. The carotid bifurcations that she no evide nce for hemodynamically significant stenosis. The internal carotid arteries patent. The origins of the great vessels and vertebral arteries appear unremarkable. Vertebral arteries are c odominant. IMPRESSIONS: 1. No evidence of significant stenosis at the carotid bifurcations. The carotid and vertebral arterie s are patent. 2. No evidence aneurysm.
== END | disposition home or self-care (01) ==
LOC: RADMRIMAIN 11:15
PROVIDERS: ATTEND Psychiatry & Neurology Neurology
DX: H93.A9 Pulsatile tinnitus, unspecified ear (principal); M54.2 Cervicalgia; R42 Dizziness and giddiness; R53.1 Weakness
CPT/HCPCS: 70549; A9585

== ENCOUNTER → 2023-09-30 | Outpatient (CLI) | payer MEDICARE, BC ==
--- NOTE | 2023-10-28 14:03 | MR ---
Patient: Mariah Lepe Ordering Physician: Unknown, Unknown ID: [id number] Phone, Pager: Daysi ne: N/A Pager: N/A : 1950 Age/Gender: 73Y, F Primary Location: N/A Procedure: MR cervical spi ne wo con Study Date: 09/30/2023 6:58:41 PM EXAMINATION TYPE: MR cervical spine wo con DATE OF EXAM: 10/01/2023 7:26 AM CLINICAL INDICATION: Vertigo, balance problems. COMPARISON: None. TECHNIQUE: Multi planar, multi sequence imaging was performed utilizing: T1-weighted, T2-weighted, an d turbo inversion recovery imaging of the cervical spine. IV Contrast: cc (none if empty) FINDINGS: Alignment: The cervical vertebral bodies have preserved heights. Grade 1 anterolisthesis of C3 on C4. Bones: Osteophytes and disc space narrowing most pronounced at the C5-C7 vertebral levels. Cord: The spinal cord is unremarkable with regards to their signal intensity and morphology. Discs: Intervertebral disc signal is maintained. C2-C3: No significant disc pathology. The spinal canal is patent. No neural foraminal stenosis. C3-C4: No significant disc pathology. The spinal canal is patent. No neural foraminal stenosis. C4-C5: No significant disc pathology. The spinal canal is patent. No neural foraminal stenosis. C5-C6: No significant disc pathology. The spinal canal is patent. Bilateral facet and uncovertebral joint arthropathy are present with moderate to severe right and mild left neural foraminal stenosis. C6-C7: No significant disc pathology. The spinal canal is patent. Bilateral facet and uncovertebral joint arthropathy are present with mild bilateral neural foraminal stenosis. C7-T1: No significant disc pathology. The spinal canal is patent. No neural foraminal stenosis. Other: None. IMPRESSION: 1. No evidence for disc herniation or significant spinal canal stenosis. 2. Mild to moderate disc degeneration with associated osteoarthritic changes. No foraminal stenosis w orse at C5-C6 with moderate to severe right stenosis.
== END | disposition home or self-care (01) ==
LOC: RADMRIMAIN 07:30
PROVIDERS: ATTEND Family Medicine
DX: M50.33 Other cervical disc degeneration, cervicothoracic region (principal); M50.30 Other cervical disc degeneration, unspecified cervical region; M79.601 Pain in right arm; M79.604 Pain in right leg
CPT/HCPCS: 72141

== ENCOUNTER → 2023-12-09 | Outpatient (CLI) | payer MEDICARE, BC ==
--- NOTE | 2023-12-09 15:47 | MR ---
INDICATION: Patient age:Female; 73 years old; Reason for study: R00.2 PALPITATIONS; PHH. Low back pain that radiates into left and right buttocks a nd down back of thighs. History of fall. COMPARISONS: No priors. TECHNIQUE: Multi planar, multi sequence imaging was performed utilizing: T1-weighted, T2-weighted, a nd turbo inversion recovery imaging of the lumbar spine. The patient was not given contrast. FINDINGS: The lumbar vertebral bodies do have preserved heights. Mild levocurvature of the lumbar sp ine with apex at L2-L3. Diffusely heterogenous bone marrow signal. Small Schmorl's nodes involving th e endplates of the L1-L2 disc. Multilevel disc desiccation is present. The conus medullaris and the distal spinal cord do appear unremarkable with regards to their signal intensity and morphology. L1-L2: Mild broad-based disc bulge with ligamentum flavum buckling and bilateral facet arthropathy. Minimal effacement of the thecal sac. Mild bilateral neural foraminal narrowing. L2-L3: Mild broad-based disc bulge with ligamentum flavum buckling and bilateral facet arthropathy. Minimal effacement of the thecal sac. Right neural foramen is patent. Mild left neural foraminal narr owing.. L3-L4: Mild broad-based disc bulge with ligamentum flavum buckling and bilateral facet arthropathy. Minimal effacement of the thecal sac. Right neural foramen is patent. Minimal left neural foraminal n arrowing. L4-L5: Left extraforaminal disc protrusion superimposed upon a broad left disc bulge is identified wi th ligamentum flavum buckling and bilateral facet arthropathy. Mild effacement of the thecal sac. Darius ral canals are minimally narrowed bilaterally. L5-S1: Broad-based disc bulge without significant effacement of the anterior thecal sac. Bilateral fa cet arthropathy. No significant neural foraminal narrowing. Other significant findings: None. IMPRESSION: Mild multilevel disc degeneration with associated osteoarthritic changes as described above. No signi ficant spinal canal stenosis. [facility], , 12/09/2023 3:45 PM
== END | disposition home or self-care (01) ==
LOC: RADMRIMAIN 14:25
PROVIDERS: ATTEND Psychiatry & Neurology Neurology
DX: R41.89 Other symptoms and signs involving cognitive functions and awareness (principal); M47.26 Other spondylosis with radiculopathy, lumbar region; G45.9 Transient cerebral ischemic attack, unspecified; M51.16 Intervertebral disc disorders with radiculopathy, lumbar region; H93.A9 Pulsatile tinnitus, unspecified ear
CPT/HCPCS: 72148

== ENCOUNTER → 2024-05-11 | Outpatient (CLI) | payer MEDICARE, BC ==
--- NOTE | 2024-05-11 15:13 | US ---
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 FINDINGS: GLAND SIZE: Right Lobe: 4.9 x 1.8 x 1.7 cm Overall Parenchyma: heterogeneous Left Lobe: 4.9 x 1.5 x 1.2 cm Overall Parenchyma: heterogeneous Isthmus Thickness: 0.2 cm NODULES RIGHT: # of nodules measured on right: 1 1. 1.4 X 1.3 x 0.8 cm, mid medial, Prior size: 1.6 x 1.2 x 0.8 cm TIRADS Score: 4 TIRADS Category 4: Composition: Solid or almost completely solid (2 points). Echogenicity: Hypoechoic (2 points). Shape: Wider than tall (0 points). Margin: Smooth (0 points). Echogenic foci: None or large comet-tail artifacts (0 points) Recommendation: If >1.5cm: FNA; If >1cm: Follow up at 1,2, 3,5 years 2. 2.3 X 1.5 x 1.3 cm, lower lateral, Nodule vs lobularity in tissue TIRADS Score: 3 TIRADS Category 3: Composition: Solid or almost completely solid (2 points). Echogenicity: Hyperechoic or isoechoic (1 point). Shape: Wider than tall (0 points). Margin: Smooth (0 points). Echogenic foci: None or large comet-tail artifacts (0 points) Recommendation: If >2.5cm: FNA; If >1.5cm: Follow up at 1,3,5 years LEFT: # of nodules measured on left: 0 A few subcentimeter nodules seen ISTHMUS: # of nodules measured in the isthmus: 1 1. 0.7 X 0.6 x 0.3 cm Prior size: 0.8 x 0.7 x 0.3 cm TIRADS Score: 4 TIRADS Category 4: Composition: Solid or almost completely solid (2 points). Echogenicity: Hypoechoic (2 points). Shape: Wider than tall (0 points). Margin: Smooth (0 points). Echogenic foci: None or large comet-tail artifacts (0 points) Recommendation: If >1.5cm: FNA; If >1cm: Follow up at 1,2, 3,5 years Bilateral neck scanned, no evidence of lymphadenopathy. IMPRESSION: Bilateral thyroid nodules that meet criteria for follow-up in one year. TR3: If nodule size is ? 2.5 cm, FNA is recommended. If nodule size is ? 1.5 cm, follow-up imaging at 1, 3, and 5 years is recommended. TR4: If nodule size is ? 1.5 cm, FNA is recommended. If nodule size is ? 1.0 cm, follow-up imaging at 1, 2, 3, and 5 years is recommended. TR5: If nodule size is ? 1.0 cm, FNA is recommended. If nodule size is ? 0.5 cm, annual follow-up for up to 5 years is recommended. [email or web address] [facility], , 05/11/2024 3:11 PM
== END | disposition home or self-care (01) ==
LOC: RADUSWWP 14:30
PROVIDERS: ATTEND Family Medicine
DX: E04.2 Nontoxic multinodular goiter (principal); Z85.820 Personal history of malignant melanoma of skin
CPT/HCPCS: 76536